=== PATIENT | male | born 1975 | race Hispanic/Latino ===

== ENCOUNTER 2021-11-10 11:24 | Inpatient (IN) | payer OTHER, SELFPAY ==
[2021-11-10 11:56] LABS: Actual Bicarbonate (HCO3v) 3 mEq/L (22-28); Chloride (VBG) 90 mmol/L (98-106); Potassium (VBG) 5.48 mmol/L (3.70-5.30); Puncture Site Other Site; Sodium 132.2 mmol/L (133-146); pH (venous) 6.82 (7.32-7.43)
[2021-11-10 12:03] LABS: Hemoglobin 16.9 g/dL (13.5-17.5); Mean Corpuscular HGB CONC 33.4 g/dL (32.0-36.0); Mean Corpuscular Hemoglobin 29.6 pg (27.0-33.0); Mean Corpuscular Volume 88.6 fl (81.2-95.1); Mean Platelet Volume 10.9 fl (7.4-10.4); Platelet Count 302 10x3/uL (150-450); RBC Distribution Width 12.7 % (11.5-14.5); Red Blood Cell (RBC) Count 5.71 10x6/uL (4.32-5.72); White Blood Cell (WBC) Count 40.5 10x3/uL (3.5-10.5)
[2021-11-10 12:17] LABS: Magnesium 2.2 mg/dL (1.6-2.6)
[2021-11-10] MEDS ORDERED: cefTRIAXone\\ROCEPHIN 2 GM VIAL ONE (12:46)
[2021-11-10 13:02] LABS: MDiff Complete? YES
[2021-11-10 13:17] LABS: Bilirubin Neg (Negative); Blood, Urine 50 (Negative); Glucose, Urine (Dipstick) >=1000 mg/dL (Negative); Ketone, Urine 150 mg/dL (Negative); Leukocyte Negative (Negative); Nitrite Negative (Negative); Protein, Urine (Dipstick) 100 mg/dl (Neg-Trace); Specific Gravity, Urine 1.025 (1.002-1.036); Urobilinogen Normal mg/dL (Less than 2)
[2021-11-10 13:22] LABS: Clarity Clear (Clear)
[2021-11-10 13:27] LABS: Bacteria/HPF 1+ HPF (None Seen); RBC/HPF 0-3 HPF (0-3); WBC/HPF None Seen HPF (0-3)
[2021-11-10] MEDS ORDERED: INSULIN REGULAR IN 0.9 % NACL 100 UNIT/100 ML BAG ONE (13:35)
[2021-11-10] MEDS ORDERED: Insulin Regular 300 UNITS/3 ML VIAL ONE (13:36)
[2021-11-10 13:38] LABS: Band 7 % (5-11); Lymphocytes 3 % (21-51); Monocytes 6 % (0-10); Neutrophil 84 % (42-75)
[2021-11-10] MEDS ORDERED: Sodium Chloride 0.9% 1,000 ML IV PRN ×3 (13:38)
[2021-11-10] MEDS ORDERED: Dextrose 5 %-0.45 % NaCl 1,000 ML IV PRN (13:38)
[2021-11-10] MEDS ORDERED: NS 0.9% w/ 20 MEQ KCL 1,000 ML IV PRN ×2 (13:38)
[2021-11-10] MEDS ORDERED: D5 1/2 NS w/20 mEq KCL 1,000 ML IV PRN (13:38)
[2021-11-10] MEDS ORDERED: Electrolyte Replacement Protocol 1 EACH IVPB PRN (13:38)
[2021-11-10 13:39] LABS: Platelet Morphology Comment Appears Adequate
[2021-11-10 13:41] LABS: RBC Morphology Normal
[2021-11-10] MEDS ORDERED: Acetaminophen 325 MG TAB PO PRN (13:41)
[2021-11-10] MEDS ORDERED: HYDROcodone/Acetaminophen 5/325 mg Tablet PO PRN (13:41)
[2021-11-10] MEDS ORDERED: Senokot S 8.6-50 MG TAB PO PRN (13:41)
[2021-11-10] MEDS ORDERED: Guaifenesin DM 100-10/5 ML UDCUP PO PRN (13:41)
[2021-11-10] MEDS ORDERED: HUMULIN R 100 UNITS in Sodium Chloride 0.9% 100 ML IVPB SCH (13:45)
[2021-11-10 13:50] LABS: ALT (SGPT) 16 U/L (8-55); AST (SGOT) 20 U/L (5-34); Albumin 4.3 g/dL (3.5-5.0); Alkaline Phosphatase 111 U/L (40-110); BUN (Urea Nitrogen) 27 mg/dL (8.9-20.6); Bilirubin, Total 0.3 mg/dL (0.2-1.2); Calc. Creatinine Clearance 0 mL/min (70-130); Calcium 8.5 mg/dL (7.8-10.44); Chloride 92 mmol/L (98-107); Globulin 3.6 g/dL (2.4-3.5); Phosphorus 8.6 mg/dL (2.3-4.7); Potassium 5.7 mmol/L (3.5-5.1); Protein, Total 7.9 g/dL (6.0-8.3); Sodium 126 mmol/L (136-145)
[2021-11-10 13:54] LABS: Carbon Dioxide Less than 8 mmol/L (22-29); Glucose 733 mg/dL (70-105)
[2021-11-10 14:26] LABS: BUN (Urea Nitrogen) 27 mg/dL (8.9-20.6); Calc. Creatinine Clearance 0 mL/min (70-130); Calcium 8.5 mg/dL (7.8-10.44); Chloride 92 mmol/L (98-107); Magnesium 2.1 mg/dL (1.6-2.6); Potassium 5.6 mmol/L (3.5-5.1); Sodium 126 mmol/L (136-145)
[2021-11-10 14:38] LABS: Carbon Dioxide Less than 8 mmol/L (22-29); Glucose 717 mg/dL (70-105)
[2021-11-10] MEDS: Sodium Chloride 0.9% 1,000 ML IV PRN ×2 (14:45→16:55)
[2021-11-10] MEDS ORDERED: Sodium Bicarb 50 MEQ/50 ML VIAL IVP SCH (15:00)
[2021-11-10 15:19] LABS: SARS-CoV-2 NAA Rapid Test Not Detected (NotDetected)
[2021-11-10 15:51] LABS: Glucose 606 mg/dL (70-105)
[2021-11-10 16:09] VITALS: BMI 20.8
[2021-11-10 16:28] LABS: Lactic Acid 3.2 mmol/L (0.5-2.2)
[2021-11-10 16:31] LABS: Glucose 549 mg/dL (70-105)
[2021-11-10 17:06] LABS: RapidComm Collect By CBN
[2021-11-10 17:09] LABS: Base Excess -31.1 mEq/L (-2.0 to +3.0)
[2021-11-10] MEDS: Ondansetron PF 4 MG/2 ML Vial IVP PRN (18:16)
[2021-11-10 18:24] LABS: Anion Gap 25 mmol/L (10-20); BUN (Urea Nitrogen) 26 mg/dL (8.9-20.6); Calc. Creatinine Clearance 57 mL/min (70-130); Calcium 8.2 mg/dL (7.8-10.44); Chloride 104 mmol/L (98-107); Glucose 379 mg/dL (70-105); Potassium 4.1 mmol/L (3.5-5.1); Sodium 133 mmol/L (136-145)
[2021-11-10 18:26] LABS: Carbon Dioxide 8 mmol/L (22-29)
[2021-11-10] MEDS ORDERED: NS 0.9% w/ 20 MEQ KCL 1,000 ML ONE ×3 (18:49→19:00)
[2021-11-10] MEDS: Famotidine 20 MG TAB PO SCH (20:22)
[2021-11-10 22:02] LABS: Anion Gap 16 mmol/L (10-20); BUN (Urea Nitrogen) 20 mg/dL (8.9-20.6); Calc. Creatinine Clearance 82 mL/min (70-130); Calcium 8.2 mg/dL (7.8-10.44); Carbon Dioxide 11 mmol/L (22-29); Chloride 110 mmol/L (98-107); Glucose 255 mg/dL (70-105); Potassium 3.9 mmol/L (3.5-5.1); Sodium 133 mmol/L (136-145)
[2021-11-10] MEDS ORDERED: Dextrose 50% Abboject 50 ML SYRINGE SLOW IVP PRN (22:16)
[2021-11-10] MEDS ORDERED: Dextrose 5% in Water 1,000 ML IV PRN (22:16)
[2021-11-11] MEDS: Ondansetron PF 4 MG/2 ML Vial IVP PRN (00:10)
[2021-11-11] MEDS ORDERED: Lantus 1000 UNITS/10 ML VIAL SC SCH ×2 (01:15→21:00)
[2021-11-11] MEDS: Sodium Chloride 0.45% 1,000 ML IV SCH ×2 (01:26→14:54)
[2021-11-11 03:07] LABS: Hemoglobin 15.1 g/dL (13.5-17.5); Mean Corpuscular HGB CONC 35.5 g/dL (32.0-36.0); Mean Corpuscular Hemoglobin 29.6 pg (27.0-33.0); Mean Corpuscular Volume 83.3 fl (81.2-95.1); Mean Platelet Volume 10.5 fl (7.4-10.4); Platelet Count 224 10x3/uL (150-450); RBC Distribution Width 12.3 % (11.5-14.5); White Blood Cell (WBC) Count 36.5 10x3/uL (3.5-10.5)
[2021-11-11 03:13] LABS: Anion Gap 17 mmol/L (10-20); BUN (Urea Nitrogen) 15 mg/dL (8.9-20.6); Calc. Creatinine Clearance 97 mL/min (70-130); Calcium 8.3 mg/dL (7.8-10.44); Carbon Dioxide 13 mmol/L (22-29); Chloride 107 mmol/L (98-107); Glucose 264 mg/dL (70-105); Potassium 3.8 mmol/L (3.5-5.1); Sodium 133 mmol/L (136-145)
[2021-11-11 03:18] LABS: MDiff Complete? YES; Manual Diff?? YES
[2021-11-11 03:22] LABS: Band 17 % (5-11); Lymphocytes 5 % (21-51); Monocytes 7 % (0-10); Neutrophil 67 % (42-75); Reactive Lymphocytes 3 % (0-10)
[2021-11-11 03:23] LABS: Platelet Morphology Comment Appears Adequate
[2021-11-11] MEDS: Insulin Regular 300 UNITS/3 ML VIAL SC PRN ×4 (03:58→15:44)
[2021-11-11] MEDS: Enoxaparin Sodium 40 MG/0.4 ML SYRINGE SC SCH (07:40)
[2021-11-11] MEDS: Famotidine 20 MG TAB PO SCH ×2 (07:40→21:36)
[2021-11-11] MEDS: Lantus 1000 UNITS/10 ML VIAL SC SCH (07:42)
[2021-11-11 12:45] LABS: Hemoglobin A1c 11.7 % (4.0-6.0)
[2021-11-11] MEDS: Albuterol Sulfate 2.5 mg/3 ml Neb NEB PRN (20:45)
[2021-11-11] MEDS ORDERED: Bupropion 150 MG XL TAB PO SCH (21:00)
[2021-11-12] MEDS: Insulin Regular 300 UNITS/3 ML VIAL SC PRN ×2 (03:01→12:32)
[2021-11-12 04:18] LABS: Hemoglobin 14.6 g/dL (13.5-17.5); Mean Corpuscular Hemoglobin 29.7 pg (27.0-33.0); Mean Corpuscular Volume 82.5 fl (81.2-95.1); Mean Platelet Volume 10.4 fl (7.4-10.4); Platelet Count 180 10x3/uL (150-450); RBC Distribution Width 12.7 % (11.5-14.5); Red Blood Cell (RBC) Count 4.91 10x6/uL (4.32-5.72); White Blood Cell (WBC) Count 20.5 10x3/uL (3.5-10.5)
[2021-11-12 05:09] LABS: MDiff Complete? YES; Manual Diff?? YES
[2021-11-12 06:11] LABS: Anion Gap 17 mmol/L (10-20); BUN (Urea Nitrogen) 8 mg/dL (8.9-20.6); Calc. Creatinine Clearance 133 mL/min (70-130); Calcium 8.5 mg/dL (7.8-10.44); Carbon Dioxide 18 mmol/L (22-29); Chloride 102 mmol/L (98-107); Glucose 244 mg/dL (70-105); Sodium 134 mmol/L (136-145)
[2021-11-12 06:19] LABS: Potassium 2.9 mmol/L (3.5-5.1)
[2021-11-12] MEDS: Potassium Chloride 20 MEQ TAB PO SCH ×2 (06:34→09:31)
[2021-11-12 06:56] LABS: Band 2 % (5-11); Eosinophils 3 % (0-10); Lymphocytes 21 % (21-51); Monocytes 3 % (0-10); Neutrophil 69 % (42-75); Reactive Lymphocytes 2 % (0-10)
[2021-11-12 06:57] LABS: Platelet Morphology Comment Appears Adequate
[2021-11-12] MEDS: Albuterol Sulfate 2.5 mg/3 ml Neb NEB PRN (08:10)
[2021-11-12] MEDS ORDERED: Lisinopril 2.5 MG TAB PO SCH (09:00)
[2021-11-12 09:06] VITALS: TEMP 97.8
[2021-11-12] MEDS ORDERED: Acetaminophen 325 MG TAB ONE (09:08)
[2021-11-12] MEDS: Famotidine 20 MG TAB PO SCH (09:31)
[2021-11-12] MEDS: Enoxaparin Sodium 40 MG/0.4 ML SYRINGE SC SCH (09:31)
[2021-11-12] MEDS: Lantus 1000 UNITS/10 ML VIAL SC SCH (09:32)
[2021-11-12 12:52] VITALS: BP 133/78
== END 2021-11-12 13:30 | disposition home or self-care (01) | DRG 637 ==
LOC: SUATTDRO 11:24 → CSHERS 11:24 → CSHIMCU 14:45 → CSHTELE 11-11 15:15
PROVIDERS: ADMIT Hospitalist; ATTEND Hospitalist
DX: E11.10 Type 2 diabetes mellitus with ketoacidosis without coma (principal); G93.41 Metabolic encephalopathy; N17.9 Acute kidney failure, unspecified; J45.909 Unspecified asthma, uncomplicated; F41.9 Anxiety disorder, unspecified; F17.200 Nicotine dependence, unspecified, uncomplicated; I10 Essential (primary) hypertension; F43.10 Post-traumatic stress disorder, unspecified; G89.29 Other chronic pain; M54.9 Dorsalgia, unspecified; E86.0 Dehydration; A08.4 Viral intestinal infection, unspecified; F12.90 Cannabis use, unspecified, uncomplicated; M45.9 Ankylosing spondylitis of unspecified sites in spine; Z20.822 Contact with and (suspected) exposure to COVID-19; Z91.14 Patient's other noncompliance with medication regimen; Z79.899 Other long term (current) drug therapy; Z79.84 Long term (current) use of oral hypoglycemic drugs; Z79.4 Long term (current) use of insulin; Z83.3 Family history of diabetes mellitus
CPT/HCPCS: 36415; 36416; 80048; 80053; 81003; 81015; 82010; 82805; 83036; 83605; 83735; 84100; 84484; 85025; 86140; 87040; 87086; 93005; 94640; 94760; 96361; 96365; 96367; J0696; J1650; J1815; J2405; J3480; J7050; J7611; U0002

== ENCOUNTER 2022-03-26 06:30 | Emergency (ER) | payer BC, SELFPAY ==
[2022-03-26] MEDS ORDERED: Insulin Regular 300 UNITS/3 ML VIAL ONE (20:32)
[2022-03-26] MEDS ORDERED: Potassium Chloride 20 MEQ/100 ML PREMIX BAG ONE (21:16)
[2022-03-26] MEDS ORDERED: NS 0.9% w/ 40 MEQ KCL 1,000 ML IV ONE (21:31)
[2022-03-26 21:38] LABS: #Basophils 0.1 10x3/uL (0.0-0.2); #Eosinphils 0.1 10x3/uL (0.0-0.5); #Monocytes 0.6 10x3/uL (0.0-1.1); #Neutrophils 9.4 10x3/uL (1.5-8.4); %Basophils 0.8 % (0.0-2.0); %Lymphocytes 26.8 % (18.0-47.0); %Monocytes 4.5 % (0.0-10.0); %Neutrophils 66.3 % (40.0-75.0); Hemoglobin 17.6 g/dL (13.5-17.5); Mean Corpuscular HGB CONC 35.4 g/dL (32.0-36.0); Mean Corpuscular Hemoglobin 30.8 pg (27.0-33.0); Mean Corpuscular Volume 86.9 fl (81.2-95.1); Mean Platelet Volume 10.3 fl (7.4-10.4); Platelet Count 258 10x3/uL (150-450); Red Blood Cell (RBC) Count 5.72 10x6/uL (4.32-5.72); White Blood Cell (WBC) Count 14.1 10x3/uL (3.5-10.5)
[2022-03-26 21:42] LABS: ALT (SGPT) 16 U/L (8-55); AST (SGOT) 13 U/L (5-34); Albumin 4.9 g/dL (3.5-5.0); Alkaline Phosphatase 94 U/L (40-110); Anion Gap 27 mmol/L (10-20); BUN (Urea Nitrogen) 13 mg/dL (8.9-20.6); Bilirubin, Total 0.4 mg/dL (0.2-1.2); Calc. Creatinine Clearance 0 mL/min (70-130); Calcium 9.4 mg/dL (7.8-10.44); Carbon Dioxide 8 mmol/L (22-29); Chloride 99 mmol/L (98-107); Estimated GFR 73; Globulin 3.6 g/dL (2.4-3.5); Glucose 339 mg/dL (70-105); Lipase 59 U/L (8-78); Potassium 4.7 mmol/L (3.5-5.1); Protein, Total 8.5 g/dL (6.0-8.3); Sodium 129 mmol/L (136-145)
[2022-03-26] MEDS ORDERED: INSULIN REGULAR IN 0.9 % NACL 100 UNIT in Premix Bag 1 BAG IVPB SCH (21:45)
[2022-03-26 21:59] LABS: Bilirubin Neg (Negative); Blood, Urine 10 (Negative); Clarity Clear (Clear); Glucose, Urine (Dipstick) >=1000 mg/dL (Negative); Ketone, Urine 150 mg/dL (Negative); Leukocyte Negative (Negative); Nitrite Negative (Negative); Protein, Urine (Dipstick) 30 mg/dl (Neg-Trace); Urobilinogen Normal mg/dL (Less than 2)
[2022-03-26 22:10] LABS: Bacteria/HPF None Seen HPF (None Seen); RBC/HPF 0-3 HPF (0-3); Squamous Epithelial None Seen HPF (0-3); WBC/HPF 0-3 HPF (0-3)
[2022-03-27] MEDS ORDERED: D5 1/2 NS w/20 mEq KCL 1,000 ML ONE (00:32)
[2022-03-27 01:28] LABS: SARS-CoV-2 NAA Rapid Test Not Detected (NotDetected)
[2022-03-27 01:37] LABS: Magnesium 1.5 mg/dL (1.6-2.6)
[2022-03-27 01:40] LABS: Anion Gap 17 mmol/L (10-20); BUN (Urea Nitrogen) 10 mg/dL (8.9-20.6); Calc. Creatinine Clearance 0 mL/min (70-130); Calcium 8.7 mg/dL (7.8-10.44); Carbon Dioxide 12 mmol/L (22-29); Chloride 108 mmol/L (98-107); Estimated GFR 109; Glucose 142 mg/dL (70-105); Phosphorus 1.7 mg/dL (2.3-4.7); Potassium 3.7 mmol/L (3.5-5.1); Sodium 133 mmol/L (136-145)
[2022-03-27 01:41] LABS: ALT (SGPT) 12 U/L (8-55); AST (SGOT) 11 U/L (5-34); Albumin 4.1 g/dL (3.5-5.0); Alkaline Phosphatase 73 U/L (40-110); Bilirubin, Total 0.5 mg/dL (0.2-1.2); Globulin 3.1 g/dL (2.4-3.5); Protein, Total 7.2 g/dL (6.0-8.3)
[2022-03-27 18:35] LABS: Actual Bicarbonate (HCO3v) 9 mEq/L (22-28); Base Excess -19.6 mEq/L (-2.0 to +3.0); Calcium, Ionized (venous) 1.25 mmol/L (1.16-1.32); Chloride (VBG) 100 mmol/L (98-106); Hemoglobin (Hb) 18.9 g/dL (13.1-17.2); Potassium (VBG) 4.91 mmol/L (3.70-5.30); Puncture Site Other Site; RapidComm Collect By CBN; Sodium 131.6 mmol/L (133-146); pH (venous) 7.09 (7.32-7.43)
== END 2022-03-27 02:26 | disposition short-term general hospital (02) ==
LOC: CSHERS 20:58
DX: E11.10 Type 2 diabetes mellitus with ketoacidosis without coma (principal); Z20.822 Contact with and (suspected) exposure to COVID-19; Z79.4 Long term (current) use of insulin
CPT/HCPCS: 36415; 36416; 80053; 81001; 82010; 82805; 83690; 83735; 83930; 84100; 85025; 96360; 96361; 96365; 96366; J1815; J3480; U0002

== ENCOUNTER 2022-06-14 11:36 | Inpatient (IN) | payer BC ==
[2022-06-14 12:21] LABS: #Basophils 0.1 10x3/uL (0.0-0.2); #Monocytes 0.4 10x3/uL (0.0-1.1); #Neutrophils 8.2 10x3/uL (1.5-8.4); %Basophils 0.9 % (0.0-2.0); %Eosinophils 0.3 % (0.0-6.0); %Lymphocytes 23.2 % (18.0-47.0); %Monocytes 3.6 % (0.0-10.0); %Neutrophils 70.7 % (40.0-75.0); Mean Corpuscular HGB CONC 35.3 g/dL (32.0-36.0); Mean Corpuscular Hemoglobin 32.1 pg (27.0-33.0); Mean Corpuscular Volume 91.1 fl (81.2-95.1); Mean Platelet Volume 9.6 fl (7.4-10.4); Platelet Count 286 10x3/uL (150-450); RBC Distribution Width 12.9 % (11.5-14.5); Red Blood Cell (RBC) Count 5.29 10x6/uL (4.32-5.72); White Blood Cell (WBC) Count 11.6 10x3/uL (3.5-10.5)
[2022-06-14 12:37] LABS: ALT (SGPT) 25 U/L (8-55); AST (SGOT) 15 U/L (5-34); Albumin 4.6 g/dL (3.5-5.0); Alkaline Phosphatase 108 U/L (40-110); Anion Gap 30 mmol/L (10-20); BUN (Urea Nitrogen) 16 mg/dL (8.9-20.6); Bilirubin, Total 0.3 mg/dL (0.2-1.2); Calc. Creatinine Clearance 0 mL/min (70-130); Calcium 9.2 mg/dL (7.8-10.44); Chloride 97 mmol/L (98-107); Estimated GFR 75; Globulin 4.3 g/dL (2.4-3.5); Glucose 331 mg/dL (70-105); Magnesium 1.6 mg/dL (1.6-2.6); Potassium 4.4 mmol/L (3.5-5.1); Protein, Total 8.9 g/dL (6.0-8.3); Sodium 132 mmol/L (136-145)
[2022-06-14 12:45] LABS: Carbon Dioxide 9 mmol/L (22-29)
[2022-06-14] MEDS ORDERED: Dextrose 5 %-0.45 % NaCl 1,000 ML IV PRN (13:06)
[2022-06-14] MEDS ORDERED: NS 0.9% w/ 20 MEQ KCL 1,000 ML IV PRN ×2 (13:06)
[2022-06-14] MEDS ORDERED: Electrolyte Replacement Protocol IVPB SCH (13:06)
[2022-06-14] MEDS ORDERED: Sodium Chloride 0.9% 1,000 ML IV PRN ×4 (13:06)
[2022-06-14] MEDS ORDERED: Ondansetron PF 4 MG/2 ML Vial IVP PRN (13:07)
[2022-06-14] MEDS ORDERED: Insulin Regular 300 UNITS/3 ML VIAL ONE (13:08)
[2022-06-14] MEDS ORDERED: INSULIN REGULAR IN 0.9 % NACL 100 UNIT/100 ML BAG ONE (13:13)
[2022-06-14] MEDS ORDERED: INSULIN REGULAR IN 0.9 % NACL 100 UNIT in Premix Bag 1 BAG IVPB SCH (13:15)
[2022-06-14 13:35] LABS: Bilirubin Neg (Negative); Blood, Urine Negative (Negative); Clarity Clear (Clear); Glucose, Urine (Dipstick) >=1000 mg/dL (Negative); Ketone, Urine 150 mg/dL (Negative); Leukocyte Negative (Negative); Nitrite Negative (Negative); Protein, Urine (Dipstick) 30 mg/dl (Neg-Trace); Specific Gravity, Urine 1.025 (1.005-1.030); Urobilinogen Normal mg/dL (Less than 2)
[2022-06-14 13:46] LABS: Bacteria/HPF None Seen HPF (None Seen); RBC/HPF 0-3 HPF (0-3); Squamous Epithelial 0-3 HPF (0-3); WBC/HPF 0-3 HPF (0-3)
[2022-06-14 14:58] VITALS: BMI 21.7
[2022-06-14 15:00] LABS: SARS-CoV-2 NAA Rapid Test DETECTED (NotDetected)
[2022-06-14 16:16] LABS: Anion Gap 21 mmol/L (10-20); BUN (Urea Nitrogen) 13 mg/dL (8.9-20.6); Calc. Creatinine Clearance 99 mL/min (70-130); Calcium 8.6 mg/dL (7.8-10.44); Carbon Dioxide 12 mmol/L (22-29); Chloride 107 mmol/L (98-107); Estimated GFR 98; Glucose 131 mg/dL (70-105); Potassium 3.9 mmol/L (3.5-5.1); Sodium 136 mmol/L (136-145)
[2022-06-14] MEDS: Dextrose 50% Abboject 50 ML SYRINGE SLOW IVP PRN ×2 (16:24→21:06)
[2022-06-14] MEDS: D5 1/2 NS w/20 mEq KCL 1,000 ML IV PRN ×2 (16:24→20:31)
[2022-06-14] MEDS ORDERED: Dextrose 50% Abboject 50 ML SYRINGE ONE (16:27)
[2022-06-14 17:29] LABS: Anion Gap 17 mmol/L (10-20); BUN (Urea Nitrogen) 12 mg/dL (8.9-20.6); Calc. Creatinine Clearance 106 mL/min (70-130); Calcium 8.5 mg/dL (7.8-10.44); Carbon Dioxide 15 mmol/L (22-29); Chloride 107 mmol/L (98-107); Estimated GFR 107; Glucose 215 mg/dL (70-105); Potassium 3.6 mmol/L (3.5-5.1); Sodium 135 mmol/L (136-145)
[2022-06-14] MEDS ORDERED: Magnesium 2 GM/50 ML(in water) 2 GM in Premix Bag 1 BAG IVPB SCH (20:45)
[2022-06-14] MEDS ORDERED: Magnesium 2 GM/50 ML BAG (IN WATER) ONE (21:01)
[2022-06-14 21:52] LABS: Anion Gap 10 mmol/L (10-20); BUN (Urea Nitrogen) 11 mg/dL (8.9-20.6); Calc. Creatinine Clearance 111 mL/min (70-130); Calcium 8.4 mg/dL (7.8-10.44); Carbon Dioxide 19 mmol/L (22-29); Chloride 107 mmol/L (98-107); Estimated GFR 109; Glucose 247 mg/dL (70-105); Potassium 3.2 mmol/L (3.5-5.1); Sodium 133 mmol/L (136-145)
[2022-06-14] MEDS: Potassium Chloride 20 MEQ in Premix Bag 1 BAG IVPB SCH (22:41)
[2022-06-15] MEDS: Potassium Chloride 20 MEQ in Premix Bag 1 BAG IVPB SCH (00:46)
[2022-06-15] MEDS: D5 1/2 NS w/20 mEq KCL 1,000 ML IV PRN (00:49)
[2022-06-15 02:10] LABS: Anion Gap 9 mmol/L (10-20); BUN (Urea Nitrogen) 10 mg/dL (8.9-20.6); Calc. Creatinine Clearance 105 mL/min (70-130); Calcium 8.7 mg/dL (7.8-10.44); Carbon Dioxide 21 mmol/L (22-29); Chloride 109 mmol/L (98-107); Estimated GFR 106; Glucose 167 mg/dL (70-105); Magnesium 1.8 mg/dL (1.6-2.6); Potassium 3.7 mmol/L (3.5-5.1); Sodium 135 mmol/L (136-145)
[2022-06-15] MEDS ORDERED: Dextrose 50% Abboject 50 ML SYRINGE IVP PRN (03:00)
[2022-06-15] MEDS ORDERED: Sodium Chloride 0.9% 1,000 ML IV SCH (03:00)
[2022-06-15] MEDS ORDERED: HumaLOG 300 UNITS/3 ML VIAL SC PRN (03:00)
[2022-06-15] MEDS ORDERED: Dextrose 5% in Water 1,000 ML IV PRN (03:00)
[2022-06-15] MEDS ORDERED: Magnesium 2 GM/50 ML(in water) 2 GM in Premix Bag 1 BAG IVPB SCH (04:00)
[2022-06-15 04:02] LABS: Anion Gap 9 mmol/L (10-20); BUN (Urea Nitrogen) 9 mg/dL (8.9-20.6); Calc. Creatinine Clearance 128 mL/min (70-130); Calcium 8.6 mg/dL (7.8-10.44); Carbon Dioxide 19 mmol/L (22-29); Chloride 110 mmol/L (98-107); Estimated GFR 113; Glucose 159 mg/dL (70-105); Potassium 3.8 mmol/L (3.5-5.1); Sodium 134 mmol/L (136-145)
== END 2022-06-15 05:50 | disposition home or self-care (01) | DRG 637 ==
LOC: CSHERS 11:36 → CSHICU 13:30
PROVIDERS: ADMIT Internal Medicine; ATTEND Internal Medicine
PROC: 8E0ZXY6 Isolation (ICD-10-PCS; principal; 2022-06-14)
DX: E10.10 Type 1 diabetes mellitus with ketoacidosis without coma (principal); U07.1 COVID-19; Z79.84 Long term (current) use of oral hypoglycemic drugs; Z79.4 Long term (current) use of insulin; Z79.899 Other long term (current) drug therapy
CPT/HCPCS: 36415; 36416; 71045; 80048; 80053; 81003; 81015; 82010; 83605; 83735; 85025; J1815; J3475; J3480; J7050; J7999; U0002